=== PATIENT | female | born 1990 | race Caucasian/White ===

== ENCOUNTER 2018-03-16 17:30 | Emergency (ER) | payer OTHER ==
[2018-03-16 17:48] VITALS: RESP 18
--- NOTE | 2018-03-16 18:15 | ED ---
General Adult HPI - General Chief complaint: Headache Stated complaint: HEARTBURN, CHEST PAIN X 2 DAYS Time Seen by Provider: 03/16/18 18:00 Source: patient, RN notes reviewed Mode of arrival: wheelchair Limitations: no limitations - History of Present Illness Initial comments: 27-year-old female presents to the emergency department for multiple complaints. No past medical history. Patient states she has had epigastric pain and heartburn x 2 days. Patient describes the pain as a burning pain in her chest. Patient states it does radiate to her back and bilateral shoulder blades. She states the pain is better when she sits up and worse when she lies down. Patient admits to nausea over the past few days but denies vomiting. Patient denies pain with inspiration or breathing. Denies shortness of breath. Patient denies control pills, recent travel, leg swelling. She denies recent cough or viral illness. Patient denies chronic alcoholism. Patient denies a chance of . She denies any history of cardiac disease. She also states she has a mild headache consistent with migraines. She states she has not taken anything for pain because of the pain in her abdomen. She states this headache has been ongoing since earlier this afternoon. Patient has no other complaints at this time including cough, hemoptysis, fevers/chills, shortness of breath, vomiting, or visual changes. - Related Data Home Medications Medication Instructions Recorded Confirmed [id number] 1 tab PO DAILY 03/16/18 03/16/18 [Excedrin] Previous Rx's Medication Instructions Recorded Famotidine [Pepcid] 20 mg PO BID PRN #20 tablet 03/16/18 Allergies Allergy/AdvReac Type Severity Reaction Status Date / Time No Known Allergies Allergy Verified 03/16/18 18:37 Review of Systems ROS Statement: Those systems with pertinent positive or pertinent negative responses have been documented in the HPI. ROS Other: All systems not noted in ROS Statement are negative. Past Medical History Past Medical History: No Reported History History of Any Multi-Drug Resistant Organisms: None Reported Past Surgical History: No Surgical Hx Reported Past Anesthesia/Blood Transfusion Reactions: No Reported Reaction Past Psychological History: Depression Smoking Status: Never smoker Past Alcohol Use History: None Reported Past Drug Use History: None Reported General Exam Limitations: no limitations General appearance: alert, in no apparent distress Head exam: Present: atraumatic, normocephalic, normal inspection Eye exam: Present: normal appearance, PERRL, EOMI. Absent: scleral icterus, conjunctival injection, periorbital swelling ENT exam: Present: normal exam, mucous membranes moist Neck exam: Present: normal inspection, full ROM. Absent: tenderness, meningismus, lymphadenopathy Respiratory exam: Present: normal lung sounds bilaterally. Absent: respiratory distress, wheezes, rales, rhonchi, stridor, chest wall tenderness, accessory muscle use Cardiovascular Exam: Present: regular rate, normal rhythm, normal heart sounds. Absent: systolic murmur, diastolic murmur, rubs, gallop, clicks GI/Abdominal exam: Present: soft, normal bowel sounds. Absent: distended, tenderness, guarding, rebound, rigid Back exam: Absent: tenderness, vertebral tenderness Neurological exam: Present: alert, oriented X3, CN II-XII intact Psychiatric exam: Present: normal affect, normal mood Course Vital Signs 03/16/18 03/16/18 17:46 20:38 Temperature 98.5 F Pulse Rate 85 83 Respiratory 18 18 Rate Blood Pressure 125/85 112/87 O2 Sat by Pulse 100 99 Oximetry EKG Findings - EKG Comments: EKG Findings:: NSR with sinus arrhythmia, ventricular rate 78, NM interval 128, QRS duration 90, QTC 419 Medical Decision Making - Medical Decision Making 27-year-old female without past medical history. Patient has burning chest pain radiating to her back as well as some epigastric pain x 3 days. Vitals are within the acceptable limits. Abdominal exam is unremarkable, minimal epigastric tenderness without any right upper quadrant tenderness. Low suspicion for cystitis. EKG shows no evidence of ST elevation or depression. CBC and CMP unremarkable. Troponin negative. Cardiac profile negative. Urine does not show any significant evidence of infection but will be cultured. Acute abdominal series was obtained to rule out any free air. No evidence of pneumoperitoneum however there is a mildly increased volume of proximal and mid colonic stool no sizable air-fluid levels. Report and image were reviewed by myself and Dr. Hernández. Patient is feeling better at this time. She will be discharged home with Pepcid and primary care follow-up. She is to return if she has worsening symptoms which patient is aware of. - Lab Data Result diagrams: 03/16/18 18:33 03/16/18 18:33 Lab Results 03/16/18 03/16/18 03/16/18 Range/Units 18:33 18:33 18:33 WBC 9.9 (3.8-10.6) k/uL RBC 4.44 (3.80-5.40) m/uL Hgb 13.4 (11.4-16.0) gm/dL Hct 39.9 (34.0-46.0) % MCV 89.7 (80.0-100.0) fL MCH 30.2 (25.0-35.0) pg MCHC 33.6 (31.0-37.0) g/dL RDW 13.3 (11.5-15.5) % Plt Count 292 (150-450) k/uL Neutrophils % 66 % Lymphocytes % 24 % Monocytes % 5 % Eosinophils % 2 % Basophils % 1 % Neutrophils # 6.5 (1.3-7.7) k/uL Lymphocytes # 2.4 (1.0-4.8) k/uL Monocytes # 0.5 (0-1.0) k/uL Eosinophils # 0.2 (0-0.7) k/uL Basophils # 0.1 (0-0.2) k/uL PT (9.0-12.0) sec INR (<1.2) APTT (22.0-30.0) sec Sodium 141 (137-145) mmol/L Potassium 3.6 (3.5-5.1) mmol/L Chloride 103 (98-107) mmol/L Carbon Dioxide 30 (22-30) mmol/L Anion Gap 8 mmol/L BUN 10 (7-17) mg/dL Creatinine 0.66 (0.52-1.04) mg/dL Est GFR (CKD-EPI)AfAm >90 (>60 ml/min/1.73 sqM) Est GFR (CKD-EPI)NonAf >90 (>60 ml/min/1.73 sqM) Glucose 101 H (74-99) mg/dL Calcium 10.0 (8.4-10.2) mg/dL Magnesium 1.8 (1.6-2.3) mg/dL Total Bilirubin 0.4 (0.2-1.3) mg/dL AST 20 (14-36) U/L ALT 19 (9-52) U/L Alkaline Phosphatase 33 L (38-126) U/L Total Creatine Kinase 75 (30-135) U/L CK-MB (CK-2) 0.4 (0.0-2.4) ng/mL CK-MB (CK-2) Rel Index 0.5 Troponin I <0.012 (0.000-0.034) ng/mL Total Protein 7.4 (6.3-8.2) g/dL Albumin 4.5 (3.5-5.0) g/dL Amylase (30-110) U/L Lipase (23-300) U/L Urine Color Urine Appearance (Clear) Urine pH (5.0-8.0) Ur Specific [place] (1.001-1.035) Urine Protein (Negative) Urine Glucose (UA) (Negative) Urine Ketones (Negative) Urine Blood (Negative) Urine Nitrite (Negative) Urine Bilirubin (Negative) Urine Urobilinogen (<2.0) mg/dL Ur Leukocyte Esterase (Negative) Urine WBC (0-5) /hpf Ur Squamous Epith Cells (0-4) /hpf Urine Mucus (None) /hpf Urine HCG, Qual (Not Detectd) 03/16/18 03/16/18 03/16/18 Range/Units 18:33 18:33 18:33 WBC (3.8-10.6) k/uL RBC (3.80-5.40) m/uL Hgb (11.4-16.0) gm/dL Hct (34.0-46.0) % MCV (80.0-100.0) fL MCH (25.0-35.0) pg MCHC (31.0-37.0) g/dL RDW (11.5-15.5) % Plt Count (150-450) k/uL Neutrophils % % Lymphocytes % % Monocytes % % Eosinophils % % Basophils % % Neutrophils # (1.3-7.7) k/uL Lymphocytes # (1.0-4.8) k/uL Monocytes # (0-1.0) k/uL Eosinophils # (0-0.7) k/uL Basophils # (0-0.2) k/uL PT 10.4 (9.0-12.0) sec INR 1.0 (<1.2) APTT 25.0 (22.0-30.0) sec Sodium (137-145) mmol/L Potassium (3.5-5.1) mmol/L Chloride (98-107) mmol/L Carbon Dioxide (22-30) mmol/L Anion Gap mmol/L BUN (7-17) mg/dL Creatinine (0.52-1.04) mg/dL Est GFR (CKD-EPI)AfAm (>60 ml/min/1.73 sqM) Est GFR (CKD-EPI)NonAf (>60 ml/min/1.73 sqM) Glucose (74-99) mg/dL Calcium (8.4-10.2) mg/dL Magnesium (1.6-2.3) mg/dL Total Bilirubin (0.2-1.3) mg/dL AST (14-36) U/L ALT (9-52) U/L Alkaline Phosphatase (38-126) U/L Total Creatine Kinase (30-135) U/L CK-MB (CK-2) (0.0-2.4) ng/mL CK-MB (CK-2) Rel Index Troponin I (0.000-0.034) ng/mL Total Protein (6.3-8.2) g/dL Albumin (3.5-5.0) g/dL Amylase (30-110) U/L Lipase (23-300) U/L Urine Color Light Yellow Urine Appearance Cloudy H (Clear) Urine pH 7.5 (5.0-8.0) Ur Specific [place] 1.009 (1.001-1.035) Urine Protein Negative (Negative) Urine Glucose (UA) Negative (Negative) Urine Ketones Negative (Negative) Urine Blood Negative (Negative) Urine Nitrite Negative (Negative) Urine Bilirubin Negative (Negative) Urine Urobilinogen <2.0 (<2.0) mg/dL Ur Leukocyte Esterase Moderate H (Negative) Urine WBC 3 (0-5) /hpf Ur Squamous Epith Cells 4 (0-4) /hpf Urine Mucus Rare H (None) /hpf Urine HCG, Qual Not Detected (Not Detectd) 03/16/18 Range/Units 18:33 WBC (3.8-10.6) k/uL RBC (3.80-5.40) m/uL Hgb (11.4-16.0) gm/dL Hct (34.0-46.0) % MCV (80.0-100.0) fL MCH (25.0-35.0) pg MCHC (31.0-37.0) g/dL RDW (11.5-15.5) % Plt Count (150-450) k/uL Neutrophils % % Lymphocytes % % Monocytes % % Eosinophils % % Basophils % % Neutrophils # (1.3-7.7) k/uL Lymphocytes # (1.0-4.8) k/uL Monocytes # (0-1.0) k/uL Eosinophils # (0-0.7) k/uL Basophils # (0-0.2) k/uL PT (9.0-12.0) sec INR (<1.2) APTT (22.0-30.0) sec Sodium (137-145) mmol/L Potassium (3.5-5.1) mmol/L Chloride (98-107) mmol/L Carbon Dioxide (22-30) mmol/L Anion Gap mmol/L BUN (7-17) mg/dL Creatinine (0.52-1.04) mg/dL Est GFR (CKD-EPI)AfAm (>60 ml/min/1.73 sqM) Est GFR (CKD-EPI)NonAf (>60 ml/min/1.73 sqM) Glucose (74-99) mg/dL Calcium (8.4-10.2) mg/dL Magnesium (1.6-2.3) mg/dL Total Bilirubin (0.2-1.3) mg/dL AST (14-36) U/L ALT (9-52) U/L Alkaline Phosphatase (38-126) U/L Total Creatine Kinase (30-135) U/L CK-MB (CK-2) (0.0-2.4) ng/mL CK-MB (CK-2) Rel Index Troponin I (0.000-0.034) ng/mL Total Protein (6.3-8.2) g/dL Albumin (3.5-5.0) g/dL Amylase 89 (30-110) U/L Lipase 194 (23-300) U/L Urine Color Urine Appearance (Clear) Urine pH (5.0-8.0) Ur Specific [place] (1.001-1.035) Urine Protein (Negative) Urine Glucose (UA) (Negative) Urine Ketones (Negative) Urine Blood (Negative) Urine Nitrite (Negative) Urine Bilirubin (Negative) Urine Urobilinogen (<2.0) mg/dL Ur Leukocyte Esterase (Negative) Urine WBC (0-5) /hpf Ur Squamous Epith Cells (0-4) /hpf Urine Mucus (None) /hpf Urine HCG, Qual (Not Detectd) Disposition Clinical Impression: Epigastric pain, Atypical chest pain Disposition: HOME SELF-CARE Condition: Good Instructions: Abdominal Pain (ED), Chest Pain (ED) Additional Instructions: Please take Pepcid as directed. Take MiraLAX at home for air in colon. Follow- up with primary care in 1-2 days. Return here if you have any worsening symptoms. Prescriptions: Famotidine [Pepcid] 20 mg PO BID PRN #20 tablet PRN Reason: heartburn Is patient prescribed a controlled substance at d/c from ED?: No Referrals: Marian Oneill MD [Primary Care Provider] - 1-2 days Time of Disposition: 21:05
[2018-03-16] MEDS ORDERED: SODIUM CHLORIDE 0.9% 1,000 ML IV STA (18:17)
[2018-03-16] MEDS ORDERED: ONDANSETRON 4 MG/2 ML VIAL IVP STA (18:17)
[2018-03-16] MEDS ORDERED: KETOROLAC 30 MG/ML 1 ML VIAL IVP STA (18:17)
[2018-03-16] MEDS ORDERED: MAG HYDROX/AL HYDROX/SIMETH 30 ML, HYOSCYAMINE ELIXIR 10 ML, CIMETIDINE HCL 300 MG, LID... PO STA ×4 (18:18)
[2018-03-16 18:51] LABS: Basophils # (A) 0.1 k/uL (0-0.2); Basophils % (A) 1 %; Eosinophils # (A) 0.2 k/uL (0-0.7); Eosinophils % (A) 2 %; HCT 39.9 % (34.0-46.0); HGB 13.4 gm/dL (11.4-16.0); Lymphocytes # (A) 2.4 k/uL (1.0-4.8); Lymphocytes % (A) 24 %; MCH 30.2 pg (25.0-35.0); MCHC 33.6 g/dL (31.0-37.0); MCV 89.7 fL (80.0-100.0); Mean Platelet Volume 8.2; Monocytes # (A) 0.5 k/uL (0-1.0); Monocytes % (A) 5 %; Neutrophils # (A) 6.5 k/uL (1.3-7.7); Neutrophils % (A) 66 %; Platelet Count 292 k/uL (150-450); RBC 4.44 m/uL (3.80-5.40); RDW 13.3 % (11.5-15.5); WBC 9.9 k/uL (3.8-10.6)
[2018-03-16 18:59] LABS: Appearance,Urine Cloudy (Clear); Bilirubin,Urine Negative (Negative); Blood,Urine Negative (Negative); Color,Urine Light Yellow; Glucose,Urine (UA) Negative (Negative); Ketones,Urine Negative (Negative); Leukocyte Esterase,Urine Moderate (Negative); Mucus,Urine Rare /hpf; Nitrite,Urine Negative (Negative); PH, Urine 7.5 (5.0-8.0); Protein,Urine Negative (Negative); Specific Gravity,Urine 1.009 (1.001-1.035); Squamous Epithelial Cell,Urine 4 /hpf (0-4); Urobilinogen,Urine <2.0 mg/dL (<2.0); WBC,Urine 3 /hpf (0-5)
[2018-03-16 19:01] LABS: Prothrombin Time 10.4 sec (9.0-12.0)
[2018-03-16 19:08] LABS: ALT 19 U/L (9-52); AST 20 U/L (14-36); Albumin 4.5 g/dL (3.5-5.0); Alkaline Phosphatase 33 U/L (38-126); Anion Gap 8 mmol/L; Blood Urea Nitrogen 10 mg/dL (7-17); Carbon Dioxide 30 mmol/L (22-30); Chloride 103 mmol/L (98-107); Creatine Kinase 75 U/L (30-135); Glucose 101 mg/dL (74-99); Magnesium 1.8 mg/dL (1.6-2.3); Potassium 3.6 mmol/L (3.5-5.1); Sodium 141 mmol/L (137-145); Total Bilirubin 0.4 mg/dL (0.2-1.3); Total Protein 7.4 g/dL (6.3-8.2)
[2018-03-16 19:21] LABS: Creatine Kinase MB 0.4 ng/mL (0.0-2.4); Troponin I <0.012 ng/mL (0.000-0.034)
[2018-03-16 19:38] LABS: Amylase 89 U/L (30-110); Lipase 194 U/L (23-300)
--- NOTE | 2018-03-16 20:15 | XR ---
EXAMINATION TYPE: XR abdomen acute w cxr DATE OF EXAM: 03/16/2018 COMPARISON: NONE HISTORY: Nausea and heartburn pain TECHNIQUE: 3 views FINDINGS: CHEST: No acute process. ABDOMEN/PELVIS: Upright and supine views. There is no evidence for pneumoperitoneum. The bowel gas pattern is unremarkable as there is air thro ughout nondilated small and large bowel. There is, however, a mildly increased volume of proximal and mid colonic stool. No sizeable air fluid levels. No mass effects are seen. No unusual calcifications. IMPRESSION: No acute process.
[2018-03-16 21:17] VITALS: BP 107/79; PULSE 82; TEMP 97.3
== END 2018-03-16 21:16 | disposition home or self-care (01) ==
LOC: EC 17:30
DX: R10.13 Epigastric pain (principal); R07.89 Other chest pain; R10.816 Epigastric abdominal tenderness; R51 Headache; R11.0 Nausea; Z32.02 Encounter for pregnancy test, result negative; Z79.82 Long term (current) use of aspirin
CPT/HCPCS: 36415; 93005; 80053; 82150; 82550; 82553; 83690; 83735; 84484; 85025; 85610; 85730; 81001; 81025; 74022; 99284; 96374; 96375; 96361; J2405; J1885

== ENCOUNTER 2018-06-15 05:13 | Emergency (ER) | payer OTHER ==
[2018-06-15] MEDS ORDERED: ONDANSETRON 4 MG/2 ML VIAL IVP STA (07:16)
[2018-06-15] MEDS ORDERED: KETOROLAC 30 MG/ML 1 ML VIAL IVP STA (07:16)
--- NOTE | 2018-06-15 07:20 | ED ---
Headache HPI - General Chief Complaint: Headache Stated Complaint: Migraine,sinus infection Time Seen by Provider: 06/15/18 07:03 Source: patient, RN notes reviewed Mode of arrival: ambulatory Limitations: no limitations - History of Present Illness Initial Comments: This is a 27-year-old female with a benign past history states she's been fighting a sinus infection for the past one or 2 weeks she was seen by her doctor yesterday and started on Zithromax Z-Jalil. She states she started developing a severe headache around 8 PM last evening. Pain is sharp 10/10 severity across her for head and below her eyes. She denies any fevers chills or sweats at this time she has had nausea no vomiting she's had some rhinorrhea. No earache sore throat no cough or phlegm production. Pain does get worse with certain positional changes. MD Complaint: headache, other - Related Data Home Medications Medication Instructions Recorded Confirmed Azithromycin [Zithromax Z-pack] See Taper PO DAILY 06/15/18 06/15/18 Ibuprofen [Motrin Ib] 800 mg PO Q6H PRN 06/15/18 06/15/18 Phenylephrine HCl [Sudafed PE] 10 mg PO Q6H PRN 06/15/18 06/15/18 Previous Rx's Medication Instructions Recorded Guaifenesin/Pseudoephedrne HCl 1 each PO BID #14 tab.er.12h 06/15/18 [Mucinex D ER Tablet] Ibuprofen [Motrin] 600 mg PO Q6HR PRN #20 tab 06/15/18 Allergies Allergy/AdvReac Type Severity Reaction Status Date / Time No Known Allergies Allergy Verified 06/15/18 07:45 Review of Systems ROS Statement: Those systems with pertinent positive or pertinent negative responses have been documented in the HPI. ROS Other: All systems not noted in ROS Statement are negative. Past Medical History Past Medical History: No Reported History History of Any Multi-Drug Resistant Organisms: None Reported Past Surgical History: No Surgical Hx Reported Past Anesthesia/Blood Transfusion Reactions: No Reported Reaction Past Psychological History: Depression Smoking Status: Never smoker Past Alcohol Use History: None Reported Past Drug Use History: None Reported General Exam - General Exam Comments Initial Comments: This a well-developed well-nourished awake alert oriented 3 female Limitations: no limitations General appearance: alert, anxious, in distress Head exam: Present: atraumatic, normocephalic, normal inspection Eye exam: Present: normal appearance, PERRL, EOMI. Absent: scleral icterus, conjunctival injection, periorbital swelling ENT exam: Present: mucous membranes moist, other (Boggy swollen nasal mucosa with some clear drainage noted. There is tenderness to percussion of the frontal and maxillary sinuses. Oropharynx is clear no evidence of any tonsillar exudates) Neck exam: Present: normal inspection. Absent: tenderness, meningismus, lymphadenopathy Respiratory exam: Present: normal lung sounds bilaterally. Absent: respiratory distress, wheezes, rales, rhonchi, stridor Cardiovascular Exam: Present: regular rate, normal rhythm, normal heart sounds. Absent: systolic murmur, diastolic murmur, rubs, gallop, clicks GI/Abdominal exam: Absent: distended, tenderness, guarding, rebound, rigid Extremities exam: Present: normal inspection, full ROM, normal capillary refill. Absent: tenderness, pedal edema, joint swelling, calf tenderness Back exam: Present: normal inspection, full ROM. Absent: tenderness Neurological exam: Present: alert, oriented X3, CN II-XII intact Psychiatric exam: Present: normal affect, normal mood Skin exam: Present: warm, dry, intact, normal color. Absent: rash Course Vital Signs 06/15/18 05:31 Temperature 98.2 F Pulse Rate 99 Respiratory 20 Rate Blood Pressure 119/80 O2 Sat by Pulse 99 Oximetry Medical Decision Making - Medical Decision Making Reevaluation patient reveals that she does feel improved at this time. Her influenza test is negative. She will be discharged with an obstruction to continue with her Zithromax she'll be placed on Mucinex and Motrin. The presentation is consistent with sinusitis and headache secondary to sinusitis - Lab Data Lab Results 06/15/18 Range/Units 07:48 Influenza Type A RNA Not Detected (Not Detectd) Influenza Type B (PCR) Not Detected (Not Detectd) Disposition Clinical Impression: Acute frontal sinusitis, Maxillary sinusitis, acute, Cephalgia Disposition: HOME SELF-CARE Condition: Good Instructions (If sedation given, give patient instructions): Acute Headache (ED), Rhinosinusitis (ED) Additional Instructions: Continue with Zithromax Prescriptions: Ibuprofen [Motrin] 600 mg PO Q6HR PRN #20 tab PRN Reason: Pain Guaifenesin/Pseudoephedrne HCl [Mucinex D ER Tablet] 1 each PO BID #14 tab.er.12h Is patient prescribed a controlled substance at d/c from ED?: No Referrals: Marian Oneill MD [Primary Care Provider] - 1-2 days
[2018-06-15 09:12] VITALS: BP 115/74; PULSE 90; RESP 18; TEMP 97.9
== END 2018-06-15 09:12 | disposition home or self-care (01) ==
LOC: EC 05:13
DX: J01.40 Acute pansinusitis, unspecified (principal)
CPT/HCPCS: 87502; 99284; 96374; 96375; J2405; J1885

== ENCOUNTER → 2021-04-09 | Outpatient (CLI) | payer OTHER ==
--- NOTE | 2021-04-09 10:30 | US ---
EXAMINATION TYPE: US transvaginal DATE OF EXAM: 04/09/2021 COMPARISON: NONE CLINICAL HISTORY: R10.30 LOWER ABDOMINAL PAIN, UNSPECIFIED. Bilateral pelvic pain for the past 2 aleja hs TECHNIQUE: Transvaginal (TV). Transvaginal sonographic images were medically necessary to better a ssess the following anatomy: Date of LMP: 03/20/2021 EXAM MEASUREMENTS: Uterus: 8.8 x 4.8 x 4.4 cm Endometrial Stripe: 1.0 cm Right Ovary: 4.5 x 2.4 x 2.2 cm Left Ovary: 4.1 x 2.7 x 2.7 cm 1. Uterus: Anteverted wnl 2. Endometrium: wnl 3. Right Ovary: wnl 4. Left Ovary: wnl 5. Bilateral Adnexa: wnl 6. Posterior cul-de-sac: wnl Uterus normal in size. Endometrial stripe measures within normal limits for secretory phase of menstr ual cycle. No free fluid. Both ovaries seen and are symmetric and normal in size with a few scattered peripheral follicles. No Suspicious ovarian or adnexal masses. IMPRESSION: Source of pain not identified.
== END | disposition home or self-care (01) ==
LOC: RADUSWWP 09:15
PROVIDERS: ATTEND Internal Medicine
DX: R10.30 Lower abdominal pain, unspecified (principal)
CPT/HCPCS: 76830

== ENCOUNTER → 2023-04-22 | Outpatient (CLI) | payer OTHER ==
--- NOTE | 2023-04-22 20:34 | US ---
EXAMINATION TYPE: US OB anatomy transabd DATE OF EXAM: 04/22/2023 COMPARISON: NONE CLINICAL INDICATION: Female, 32 years old with history of Z34.90 ENCNTR FOR SUPRVSN OF NORMAL PREGNAN CY, UNS; 20 week anatomy scan TECHNIQUE: Transabdominal (TA) EXAM MEASUREMENTS: GESTATIONAL AGE / DATING Physician Established: (19 weeks/1 days) EDC: 09/15/2023 Dates by Current Scan for: (19 weeks/3 days) EDC: 09/13/2023 SURVEY IUP: Single PLACENTA: Anterior PREVIA: No previa FLORENTINO: 20.1 cm Normal CERVICAL LENGTH (transabdominal: norm > 3.0cm): 5.2 cm BIOMETRY PRESENTATION: Vertex LIE: Longitudinal BPD: 4.6 cm 19 weeks / 6 days HC: 17.3 cm 19 weeks / 6 days AC: 14.4 cm 19 weeks / 5 days FL: 3.0 cm 19 weeks / 1 days ESTIMATED WEIGHT IN GRAMS: 295.82 grams ESTIMATED WEIGHT IN LBS/OZ: 0 lbs. 10 oz. WEIGHT PERCENTAGE BASED ON ESTABLISHED DATE: 66.8 % HC/AC: 1.2 Normal FL/AC: 20.65 Normal HEART RATE: 150 bpm RHYTHM: Normal ANATOMY SEEN (within normal limits): * Lateral Vent (< 1 cm) 0.8 cm * Cisterna Magna (< 1.1 cm) 0.5 cm * Nuchal Fold (< 0.6 cm) 0.4 cm * Cerebellum (varies with age) 1.88 cm Choroid Plexus (bilateral) Midline Falx Cavus Septi Pellucidi Four Chamber Heart Outflow tracts: LVOT/RVOT Stomach Situs Nose / Lips Diaphragm Kidneys (bilateral) Bladder Cord Insert Three Vessel Cord Longitudinal Spine Transverse Spine Arms (bilateral) Legs (bilateral) IMPRESSION: Exam as described above. Single live intrauterine gestation with ultrasound age 19 weeks 3 days
== END | disposition home or self-care (01) ==
LOC: RADUSWWP 13:24
PROVIDERS: ATTEND Obstetrics & Gynecology
DX: Z34.92 Encounter for supervision of normal pregnancy, unspecified, second trimester (principal); Z3A.20 20 weeks gestation of pregnancy
CPT/HCPCS: 76811

== ENCOUNTER → 2023-08-12 | Outpatient (CLI) | payer OTHER ==
--- NOTE | 2023-08-12 14:32 | US ---
EXAMINATION TYPE: US OB >= 14 wk fetus DATE OF EXAM: 08/12/2023 COMPARISON: None CLINICAL INDICATION: Female, 32 years old with history of Z34.90ENCNTR FOR SUPRVSN OF NORMAL PREGNANC Y, UNSP; 3rd trimester growth TECHNIQUE: OBTA GESTATIONAL AGE / DATING Physician Established: (35 weeks/1 days) EDC: 09/15/2023 Dates by LMP: LMP unknown Dates by First Scan: (35 weeks/3 days) EDC: 09/13/2023 Dates by Current Scan: (36 weeks/2 days) EDC: 09/07/2023 SURVEY IUP: Single PLACENTA: Anterior PREVIA: No Previa FLORENTINO: 25-26 cm Polyhydramnios CERVICAL LENGTH (transabdominal: norm > 3.0cm): 3.2 cm BIOMETRY PRESENTATION: Vertex LIE: Longitudinal BPD: 9.6 cm 39 weeks / 1 days HC: 32.7 cm 37 weeks / 1 days AC: 32.0 cm 36 weeks / 0 days FL: 6.3 cm 32 weeks / 4 days ESTIMATED WEIGHT IN GRAMS: 2699 grams ESTIMATED WEIGHT IN LBS/OZ: 5 lbs. 15 oz. WEIGHT PERCENTAGE BASED ON ESTABLISHED DATES: 59% HC/AC: 1.0 Normal FL/AC: 20 Normal HEART RATE: 174 bpm RHYTHM: Normal IMPRESSION: Single live intrauterine gestation ultrasound age 36 weeks 2 days. Additional information as describe d above.
== END | disposition home or self-care (01) ==
LOC: RADUSWWP 13:34
PROVIDERS: ATTEND Obstetrics & Gynecology
DX: Z34.93 Encounter for supervision of normal pregnancy, unspecified, third trimester (principal); Z3A.37 37 weeks gestation of pregnancy
CPT/HCPCS: 76805